=== PATIENT | female | born 1970 | race Caucasian/White ===

== ENCOUNTER → 2017-10-30 07:18 | Outpatient (CLI) | payer OTHER, SELFPAY ==
--- NOTE | 2017-10-30 | DI.US.S_ITS ---
PROCEDURE: US PELVIC COMPLETE INDICATIONS: PELVIC PAIN TECHNIQUE: Real-time scanning was performed of the pelvic organs, with image documentation. Additional endovaginal scanning was necessary due to incomplete visualization of the adnexal and endometrial structures by transabdominal scanning. COMPARISON: [facility], , PELVIC COMPLETE, 07/07/2010, 10:22. FINDINGS: Transabdominal scanning: Limited scanning through the kidneys shows no hydronephrosis. The kidneys measure 10.8 CM right and 10.4 CM left. No pathologic free abdominal or pelvic fluid. Endovaginal scanning: Uterus: Uterus is mildly enlarged in size at 5.0 x 6.4 x 10.1 cm. The endometrium measures 3.3 mm in combined thickness. Ovaries: Ovaries appear normal bilaterally measuring 15 x 19 x 27 mm right and 11 x 12 x 22 mm left. IMPRESSION: Mildly enlarged uterus with no measurable mass lesions. Normal ovaries. Source of right pelvic pain not seen. Dictated by: Ruslan Lora M.D. on 10/30/2017 at 8:40 Approved by: Ruslan Lora M.D. on 10/30/2017 at 8:43
== END ==
PROVIDERS: Family Provider Family Medicine; PCP Family Medicine; Visit Provider Family Medicine
DX: R10.2 Pelvic and perineal pain (principal); N85.2 Hypertrophy of uterus
CPT/HCPCS: 76830; 76856

== ENCOUNTER → 2019-03-04 13:44 | Outpatient (CLI) | payer OTHER, SELFPAY ==
--- NOTE | 2019-03-04 | DI.RAD.S_ITS ---
PROCEDURE: XR CHEST 2V INDICATIONS: CHEST PAIN TECHNIQUE: 2 views of the chest were acquired. COMPARISON: None. FINDINGS: Surgical changes and devices: None. Lungs and pleura: Lungs are clear. No pleural effusions or pneumothorax. Mediastinum: Mediastinal contours are normal. Heart size is normal. Bones and chest wall: No suspicious bony abnormalities. Soft tissues appear unremarkable. IMPRESSION: No acute cardiopulmonary disease. Dictated by: Hayden Vera M.D. on 03/04/2019 at 16:44 Approved by: Hayden Vera M.D. on 03/04/2019 at 16:44
--- NOTE | 2019-03-04 14:53 | PM.TREADMILL ---
Cardiac Stress Test Report Referral & Results Date Patient Seen: 03/04/19 Requesting provider: Sundeep Palencia Indication: Chest pain Rest ECG: Unremarkable Procedure Note: Today following both written and verbal informed consent, the patient was exercised according to a standard Mao protocol. The patient exercised for a total of 12 minutes achieving a maximum heart rate of 170. Patient's maximum systolic blood pressure was 150. This was an estimated 12.[address]-T segment changes Normal heart rate and blood pressure response to exercise Functional aerobic impairment way way way off the scale I estimate her functional aerobic capacity to be equal to that of an active 18-year-old Impression: No evidence of ischemia Amazing exercise capacity Please note: Actual ECG tracings can be found in the PACS system.
== END ==
PROVIDERS: Family Provider Family Medicine; PCP Family Medicine; Visit Provider Family Medicine
DX: R07.9 Chest pain, unspecified (principal)
CPT/HCPCS: 71046; 93016; 93017; 93018

== ENCOUNTER → 2019-12-04 08:01 | Outpatient (CLI) | payer OTHER, SELFPAY ==
--- NOTE | 2019-12-04 08:58 | DI.CT.S_ITS ---
PROCEDURE: CT ABDOMEN PELVIS W CON INDICATIONS: ABDOMINAL PAIN,PELVIC PAIN TECHNIQUE: After the administration of oral and intravenous contrast, 5 mm thick sections acquired from the diaphragms to the symphysis. 5 mm thick coronal and sagittal reformats were performed. For radiation dose reduction, the following was used: automated exposure control, adjustment of mA and/or kV according to patient size. COMPARISON: None. FINDINGS: Image quality: Excellent. ABDOMEN: Lung bases: Lung bases are clear. Heart size is normal. Hepatic steatosis. Gallbladder negative . Biliary system is non-dilated. Pancreas enhances normally. Spleen is normal in size and enhancement. No adrenal nodules. Kidneys are normal in size and enhancement, without hydronephrosis. Peritoneum and bowel: Stomach, small bowel, and colon loops are normal in caliber and wall thickness. No free fluid or air. Normal appendix. Large amount of stool is present. Nodes and vessels: No retroperitoneal or mesenteric adenopathy. Aorta and inferior vena cava are normal in caliber. Miscellaneous: No ventral hernias. PELVIS: Genitourinary: Bladder wall thickness is normal. Tiny fat containing right inguinal hernia. Bones: No suspicious bony lesions. No vertebral body compression fractures. IMPRESSION: No acute abnormality as detailed above Normal appendix Large amount of stool raising possibility of constipation/fecal retention. Dictated by: Zeke High M.D. on 12/04/2019 at 10:15 Approved by: Zeke High M.D. on 12/04/2019 at 10:19
== END ==
PROVIDERS: Family Provider Family Medicine; PCP Family Medicine; Referring Provider Family Medicine; Visit Provider Family Medicine
DX: R10.9 Unspecified abdominal pain (principal); R10.2 Pelvic and perineal pain
CPT/HCPCS: 74177; Q9967

== ENCOUNTER → 2019-12-16 10:45 | Outpatient (CLI) | payer OTHER, SELFPAY ==
--- NOTE | 2019-12-16 | DI.US.S_ITS ---
PROCEDURE: US PELVIC COMPLETE INDICATIONS: DYSMENORRHEA, NOT SPECIFIED TECHNIQUE: Real-time scanning was performed of the pelvic organs, with image documentation. Additional endovaginal scanning was necessary due to incomplete visualization of the adnexal and endometrial structures by transabdominal scanning. COMPARISON: [facility], CT, CT ABDOMEN PELVIS W CON, 12/04/2019, 8:54. [facility], US, US PELVIC COMPLETE, 10/30/2017, 7:34. FINDINGS: Transabdominal scanning: Limited scanning through the kidneys shows no hydronephrosis. No pathologic free abdominal or pelvic fluid. Endovaginal scanning: Uterus: Uterus is normal in size at 11.6 x 5 x 5.7 cm. The endometrium measures 10 mm in combined thickness. Ovaries: The right ovary measures 4.6 x 2.8 x 2.7 cm and demonstrates a cyst that measures up to 2.9 cm, which is considered to be within physiologic limits. The left ovary measures 1.9 x 1.2 x 1.7 cm. The ovaries have a normal sonographic appearance. No adnexal masses are seen. IMPRESSION: No significant abnormality is seen to explain the patient's presenting symptoms. Dictated by: Bairon Amos M.D. on 12/16/2019 at 12:29 Approved by: Bairon Amos M.D. on 12/16/2019 at 12:31
== END ==
PROVIDERS: Family Provider Family Medicine; PCP Family Medicine; Referring Provider Family Medicine; Visit Provider Family Medicine
DX: N94.6 Dysmenorrhea, unspecified (principal)
CPT/HCPCS: 76830; 76856

== ENCOUNTER → 2020-08-16 16:24 | Outpatient (CLI) | payer OTHER, SELFPAY ==
--- NOTE | 2020-08-16 16:26 | DI.MG.S_ITS ---
BILATERAL DIGITAL SCREENING MAMMOGRAM 3D/2D WITH CAD: 08/16/2020 CLINICAL: Routine screening. Comparison is made to exams dated: 05/30/2017 mammogram and 05/20/2013 mammogram - [facility]. There are scattered fibroglandular elements in both breasts. Current study was also evaluated with a Computer Aided Detection (CAD) system. No significant masses, calcifications, or other findings are seen in either breast. There has been no significant interval change. IMPRESSION: NEGATIVE There is no mammographic evidence of malignancy. A 1 year screening mammogram is recommended. This exam was interpreted at Station ID: [id number]. NOTE: For mammograms, a report in lay terms will be sent to the patient. Approximately 15% of breast malignancies will not be visualized mammographically. In the management of a palpable breast mass, a negative mammogram must not discourage biopsy of a clinically suspicious lesion. Electronically Signed By: Javier breen/alea:08/16/2020 17:00:24 letter sent: Normal Exam ACR BI-RADS Category 1: Negative [id number]
== END ==
PROVIDERS: Family Provider Family Medicine; PCP Family Medicine; Referring Provider Family Medicine; Visit Provider Family Medicine
DX: Z12.31 Encounter for screening mammogram for malignant neoplasm of breast (principal)
CPT/HCPCS: 77063; 77067

== ENCOUNTER → 2021-01-19 11:10 | Outpatient (CLI) | payer OTHER, SELFPAY ==
[2021-01-19 14:22] LABS: COVID19 -Nasal RAPID Negative (Negative)
== END ==
PROVIDERS: Family Provider Family Medicine; PCP Family Medicine; Visit Provider Nurse Practitioner Family
DX: Z20.822 Contact with and (suspected) exposure to COVID-19 (principal)
CPT/HCPCS: 87635

== ENCOUNTER 2021-01-21 14:17 | Day surgery (SDC) | payer OTHER, SELFPAY ==
[2021-01-21] VITALS (7 sets, daily range): BP systolic 100–108; BP diastolic 57–69; PULSE 64–75; RESP 12–14; TEMP 36.2–36.3; O2SAT 97–100; BMI 25.0
--- NOTE | 2021-01-21 11:46 | P.HP_ITS ---
History of Present Illness History of Present Illness Date Patient Seen: 01/21/21 Chief complaint: [facility] [place] Narrative: 50 Years Old Female seen today for consideration of a screening colonoscopy. There have been no recent lower GI symptoms suggesting disease such as change in bowel habits, bleeding, abdominal pain or anemia. Adopted. Overall health issues have been stable, including no major cardiac events for at least 6 weeks. Past Medical History: Toxic goiter Endometriosis Pelvic pain, acute Blood in stool Abdominal pain MENSES IRREGULAR Chest pain Hematuria Dermal mole with change Adult situational reaction abscess, genital labia PLANTAR WART HYPOTHYROIDISM INCONTINENCE, STRESS, FEMALE ECZEMA Skin tags; irritated/inflammed Past Surgical History: Laparoscopic ablation Family History: Adopted Social History: Marital Status: Children: 2 Occupation: Realtor Household Members: HugoMelanieOsnny Chichi Education: College -[employer] Drinks 1-2 glasses of wine daily. Meds Home Medications and Allergies Home Medications Medication Instructions Recorded Confirmed Type levothyroxine 175 mcg tablet mcg 01/21/21 History (Synthroid) Allergies Allergy/AdvReac Type Severity Reaction Status Date / Time No Known Drug Allergies Allergy Verified 01/21/21 14:10 Review of Systems Review of Systems Narrative: All remaining ROS were reviewed and negative except as addressed. Exam Narrative Exam Narrative: GENERAL: Alert and oriented, appearing stated age and in no acute distress. HEENT: Head normocephalic/atraumatic. LUNGS: Clear to ausculation bilaterally, no wheezes, rhonchi or rales. CV: Normal S1 and S2 with regular rate and rhythm, no audible murmurs, rubs or gallops. ABDOMEN: Soft, non-tender, non-distended, no organomegaly. Positive bowel sounds. EXTREMITIES: No clubbing, cyanosis, or edema. NEURO: Cranial nerves II through XII grossly intact, no focal deficits. PSYCH: Alert and oriented x 3. SKIN: No concerning lesions. Assessment & Plan Assessment & Plan narrative: 1. Screening for colon cancer Plan for colonoscopy. The nature and character of the procedure as well as anticipated results were discussed. The possibility of not completing the procedure was also discussed. Possible complications including aspiration pneumonia, bleeding, perforation and reaction to medications either for sedation or preparation and missed lesions were discussed. Questions were answered and proceeding to the colonoscopy was elected. Informed consent signed. I sincerely appreciate the referral allowing me to participate in this patient's care. Please contact me with any questions or concerns. Time Spent With Patient Critical Care time: I spent a total of [] minutes of critical care time on this patient's care today; this time is exclusive of procedural time.
--- NOTE | 2021-01-21 11:47 | PM.OP.COLON ---
Operative Date/Time/Diagnoses Date of procedure: 01/21/21 Procedure Notes SCOAP/Timeout: 3:40 p.m. Procedure in detail: ENDOSCOPIST: Devi Alvarez MD Sedation RN: Monika Crespo RN Sedation start time: 3:41 p.m. Sedation end time: 3:55 p.m. PROCEDURE: Colonoscopy INDICATIONS: 1. Screening for colon cancer MEDICATION: Levsin 0.125 mg sublingual, incremental doses of Versed and fentanyl until appropriate level sedation achieved. ASA CLASS: 2 CECAL WITHDRAWAL TIME: 6 minutes COMPLICATIONS: None. EXTENT OF PROCEDURE: Cecum. QUALITY OF PREP: Good with portions of liquid stool. PROCEDURE: Prior to insertion of the colonoscope, a digital rectal examination was accomplished with circumferential palpation of the distal rectal mucosa without significant findings being noted. The high-definition colonoscope was passed into the rectum in the usual fashion and advanced over to the cecum without difficulty. The ileocecal valve, appendiceal stoma, and medial wall all could be inspected and no abnormalities were seen. ASCENDING COLON: As the colonoscope was withdrawn, care was taken to expose and inspect the haustral folds and no abnormalities were seen. HEPATIC FLEXURE: Normal, no polyps, diverticula or other abnormalities. TRANSVERSE COLON: Normal, no polyps, diverticula or other abnormalities. DESCENDING COLON: Normal, no polyps, diverticula or other abnormalities. SIGMOID COLON: Normal, no polyps, diverticula or other abnormalities. RECTUM: Normal. J maneuver was produced. There was no significant perianal disease. The J maneuver was broken. The remainder of the rectum was inspected and there was no external hemorrhoid disease. The scope was withdrawn. IMPRESSION: 1. Normal colonoscopy PLAN: 1. Repeat colonoscopy in 10 years. The possibility of a missed lesion including a malignancy has been discussed with the patient previously. Potential alarm symptoms have been discussed and should be reported immediately.
--- NOTE | 2021-01-21 14:31 | SUR.PREOP ---
Hycosamine administered as per MD order at 1431 with small sip water. Scanner not working for [facility]
[2021-01-21] MEDS: LACTATED RINGERS 1,000 ML 200 ML IV (14:45)
[2021-01-21] MEDS: fentaNYL 250 MCG/5 ML INJ IV (15:57)
[2021-01-21] MEDS: MIDAZOLAM 5 MG/5 ML VIAL IV (15:58)
== END 2021-01-21 16:38 | disposition home or self-care (01) ==
LOC: ENDO 14:19
PROVIDERS: Family Provider Family Medicine; PCP Family Medicine; Referring Provider Student in an Organized Health Care Education/Training Program; Visit Provider Student in an Organized Health Care Education/Training Program
PROC: 0DJD8ZZ Inspection of Lower Intestinal Tract, Via Natural or Artificial Opening Endoscopic (ICD-10-PCS; CPT 45378; principal; 2021-01-21 15:15)
DX: Z12.11 Encounter for screening for malignant neoplasm of colon (principal)
CPT/HCPCS: 45378; 81025; J2250; J3010

== ENCOUNTER → 2022-03-14 13:22 | Outpatient (CLI) | payer OTHER, SELFPAY ==
--- NOTE | 2022-03-14 | DI.RAD.S_ITS ---
PROCEDURE: XR LUMBAR SPINE 2-3V INDICATIONS: Low back pain, unspecified TECHNIQUE: 3 views of the lumbar spine were acquired. COMPARISON: None. FINDINGS: Bones: 5 [id number] vertebrae are present. There is mild levoscoliosis centered at L1-2 level. Loss of disc height, degenerative endplate changes and bilateral facet arthrosis throughout lumbar spine is seen. No vertebral body compression fractures. No suspicious bony lesions. Soft tissues: Overlying bowel gas pattern is normal. No suspicious soft tissue calcifications. IMPRESSION: Mild degenerative disc disease throughout lumbar spine with mild scoliosis as above. No acute compression fracture or significant spondylolisthesis. Dictated by: Augustine Box M.D. on 03/14/2022 at 15:05 Approved by: Augustine Box M.D. on 03/14/2022 at 15:12
== END ==
PROVIDERS: Family Provider Family Medicine; PCP Family Medicine; Referring Provider Family Medicine; Visit Provider Family Medicine
DX: M51.36 Other intervertebral disc degeneration, lumbar region (principal); M41.9 Scoliosis, unspecified; M54.50 Low back pain, unspecified
CPT/HCPCS: 72100

== ENCOUNTER → 2022-09-11 06:51 | Outpatient (CLI) | payer OTHER, SELFPAY ==
--- NOTE | 2022-09-11 | DI.US.S_ITS ---
PROCEDURE: US PELVIC COMPLETE INDICATIONS: CRAMPING TECHNIQUE: Real-time scanning was performed of the pelvic organs, with image documentation. Additional endovaginal scanning was necessary due to incomplete visualization of the adnexal and endometrial structures by transabdominal scanning. COMPARISON: [facility], , US PELVIC COMPLETE, 12/16/2019, 11:16. FINDINGS: Uterus: Endometrium measures 2-3 mm, within normal limits. Overall uterus measures 8.7 by 4 x 5.1 cm. Homogeneous echotexture. Ovaries: Nonenlarged ovaries measuring 1-2 cc bilaterally. No pathologic free fluid. IMPRESSION: No acute sonographic abnormality identified. Dictated by: Jorgito Ballard M.D. on 09/11/2022 at 9:03 Approved by: Jorgito Ballard M.D. on 09/11/2022 at 9:04
== END ==
PROVIDERS: Family Provider Family Medicine; PCP Family Medicine; Referring Provider Internal Medicine; Visit Provider Internal Medicine
DX: R10.2 Pelvic and perineal pain (principal)
CPT/HCPCS: 76830; 76856

== ENCOUNTER → 2023-01-01 14:31 | Outpatient (CLI) | payer OTHER, SELFPAY ==
--- NOTE | 2023-01-01 | DI.RAD.S_ITS ---
PROCEDURE: XR KNEE RT 3V INDICATIONS: Pain in right knee TECHNIQUE: 3 views of the knee were acquired. COMPARISON: None. FINDINGS: Bones: No fractures or dislocations. No suspicious bony lesions. No significant degenerative changes. Soft tissues: No joint effusion. No suspicious soft tissue calcifications. IMPRESSION: No definite radiographic abnormality. If pain persists with conservative management consider cross-sectional imaging with MRI or CT. Dictated by: Cortes Viveros M.D. on 01/01/2023 at 15:18 Approved by: Cortes Viveros M.D. on 01/01/2023 at 15:19
== END ==
PROVIDERS: Family Provider Family Medicine; PCP Family Medicine; Referring Provider Internal Medicine; Visit Provider Internal Medicine
DX: M25.561 Pain in right knee (principal)
CPT/HCPCS: 73562

== ENCOUNTER → 2023-06-27 13:00 | Outpatient (CLI) | payer OTHER, SELFPAY ==
--- NOTE | 2023-06-27 13:01 | DI.MG.S_ITS ---
BILATERAL DIGITAL SCREENING MAMMOGRAM 3D/2D WITH CAD: 06/27/2023 CLINICAL: Routine screening. Comparison is made to exams dated: 08/16/2020 mammogram, 05/30/2017 mammogram, and 05/20/2013 mammogram - [facility]. There are scattered areas of fibroglandular density in both breasts (category b / 25%-50% glandular tissue). Current study was also evaluated with a Computer Aided Detection (CAD) system. No significant masses, calcifications, or other findings are seen in either breast. There has been no significant interval change. IMPRESSION: NEGATIVE There is no mammographic evidence of malignancy. A 1 year screening mammogram is recommended. Based on the Tyrer Cuzick model (a risk assessment model) the patient's lifetime risk is 9.2% and her 10 year risk is 2.5%. According to the ACR, ACS, and NCCN guidelines, an annual breast MRI exam along with mammogram is recommended if the patient's lifetime risk is 20% or greater. This exam was interpreted at Station ID: [id number]. NOTE: For mammograms, a report in lay terms will be sent to the patient. Approximately 15% of breast malignancies will not be visualized mammographically. In the management of a palpable breast mass, a negative mammogram must not discourage biopsy of a clinically suspicious lesion. Electronically Signed By: Lou domingo/alea:06/27/2023 16:26:19 letter sent: Normal Exam ACR BI-RADS Category 1: Negative [id number]
== END ==
LOC: MAMMO 13:00
PROVIDERS: Family Provider Family Medicine; PCP Family Medicine; Referring Provider Family Medicine; Visit Provider Family Medicine
DX: Z12.31 Encounter for screening mammogram for malignant neoplasm of breast (principal); R92.323 Mammographic fibroglandular density, bilateral breasts
CPT/HCPCS: 77063; 77067

== ENCOUNTER → 2024-03-04 11:08 | Outpatient (CLI) | payer OTHER, SELFPAY ==
--- NOTE | 2024-03-04 11:09 | DI.CT.S_ITS ---
PROCEDURE: CT SINUS SCREEN WO CON INDICATIONS: SINUS HEADACHE TECHNIQUE: Noncontrast 3.0 mm axial images acquired from the frontal sinuses to the mid-sella, with coronal and sagittal reformats. For radiation dose reduction, the following was used: automated exposure control, adjustment of mA and/or kV according to patient size. COMPARISON: None. FINDINGS: Image quality: Excellent. Maxillary Sinuses: No bony remodeling or destruction. Mild bilateral maxillary sinus mucosal thickening. Ethmoid Air Cells: No bony remodeling or destruction. Sinuses are clear. Sphenoid Sinuses: No bony remodeling or destruction. Sinuses are clear. Frontal Sinuses: No bony remodeling or destruction. Sinuses are clear. Ostiomeatal Complexes: Ostiomeatal complexes are patent. No Thi cells. Miscellaneous: Visualized intra-orbital contents are normal. No ciarra bullosa or paradoxical turbinate curvature. Mild rightward nasal septal deviation. IMPRESSION: 1. Mild bilateral maxillary sinus mucosal thickening. 2. Mild rightward nasal septal deviation. Dictated by: Frankie Multani M.D. on 03/04/2024 at 12:51 Approved by: Frankie Multani M.D. on 03/04/2024 at 13:01
== END ==
LOC: CT 11:09
PROVIDERS: Family Provider Family Medicine; PCP Family Medicine; Referring Provider Family Medicine; Visit Provider Family Medicine
DX: J32.0 Chronic maxillary sinusitis (principal); R51.9 Headache, unspecified; J34.2 Deviated nasal septum
CPT/HCPCS: 70486

== ENCOUNTER → 2024-04-28 13:57 | Outpatient (CLI) | payer OTHER, SELFPAY ==
--- NOTE | 2024-04-28 13:59 | DI.US.S_ITS ---
PROCEDURE: US PELVIC COMPLETE INDICATIONS: POSTMENOPAUSAL BLEEDING TECHNIQUE: Real-time scanning was performed of the pelvic organs, with image documentation. Additional endovaginal scanning was necessary due to incomplete visualization of the adnexal and endometrial structures by transabdominal scanning. COMPARISON: [facility], , US PELVIC COMPLETE, 09/11/2022, 6:57. FINDINGS: Uterus: Uterus is anteverted and normal in size at 9.9 x 3.6 x 4.5 cm. The myometrium is homogeneous. The endometrium measures 3.4 mm combined thickness. Ovaries: Nonvisualized Other: No pathologic free abdominal or pelvic fluid. IMPRESSION: Nonvisualized ovaries. Otherwise unremarkable. Approved by: Chris Pichardo M.D. on 04/28/2024 at 19:10
== END ==
PROVIDERS: Family Provider Family Medicine; PCP Family Medicine; Referring Provider Family Medicine; Visit Provider Family Medicine
DX: N95.0 Postmenopausal bleeding (principal)
CPT/HCPCS: 76830; 76856

== ENCOUNTER → 2024-06-12 14:35 | Outpatient (CLI) | payer OTHER, SELFPAY ==
--- NOTE | 2024-06-12 | DI.RAD.S_ITS ---
PROCEDURE: XR LUMBAR SPINE MIN 4V INDICATIONS: chronic left sided low back pain with bilat sciatica TECHNIQUE: 5 views of the lumbar spine were acquired, including bilateral oblique views. COMPARISON: [facility], , XR LUMBAR SPINE 2-3V, 03/14/2022, 13:38. FINDINGS: Lumbar spine curvature and alignment: Mild levoscoliosis appreciated. Bones: There are no osseous abnormalities. Disc spaces: Moderate L2-3, mild L3-4 degenerative disc disease noted. There is mild degenerative facet disease L4-5 L5-S1. Soft tissues: No soft tissue swelling, calcification or mass. IMPRESSION: Degeneration Dictated by: Adolfo Benavides M.D. on 06/13/2024 at 12:07 Approved by: Adolfo Benavides M.D. on 06/13/2024 at 12:08
== END ==
PROVIDERS: Family Provider Family Medicine; PCP Family Medicine; Referring Provider Family Medicine; Visit Provider Family Medicine
DX: M51.16 Intervertebral disc disorders with radiculopathy, lumbar region (principal); M47.26 Other spondylosis with radiculopathy, lumbar region; M47.27 Other spondylosis with radiculopathy, lumbosacral region; G89.29 Other chronic pain
CPT/HCPCS: 72110

== ENCOUNTER → 2024-07-24 10:41 | Outpatient (CLI) | payer OTHER, SELFPAY ==
--- NOTE | 2024-07-24 10:43 | DI.MRI.S_ITS ---
PROCEDURE: MR LUMBAR SPINE WO CON INDICATIONS: BACK PAIN WITH RADICULOPATHY TECHNIQUE: Noncontrast sagittal T1 spin echo and T2 fast echo, sagittal STIR, and T2 fast spin echo through the lumbar spine. In cases with scoliosis, additional coronal T2 fast spin echo may be performed. COMPARISON: [facility], CR, XR LUMBAR SPINE 2-3V, 03/14/2022, 13:38. [facility], CT, CT ABDOMEN PELVIS W CON, 12/04/2019, 8:54. [facility], CR, XR LUMBAR SPINE MIN 4V, 06/12/2024, 14:41. FINDINGS: Image quality: Excellent. Alignment and Curvature: Mild levoconvex scoliotic curvature is noted. No focal AP alignment abnormality is seen. Bone Marrow: Marrow is of normal overall signal. No acute vertebral body compression fractures. Spinal Cord: Conus medullaris terminates at the L1 level. Visualized cord demonstrates normal signal and size. Paraspinous Soft Tissues: No paravertebral masses. T12-L1: Normal appearance. L1-L2: Normal appearance. L2-L3: Mild loss of disc height is seen. Loss of disc signal is seen. Mild generalized disc bulge is seen. There is a superimposed central disc protrusion. Mild to moderate facet hypertrophy is seen. There is moderate left-sided and minimal to mild right-sided neural foraminal narrowing. Moderate central canal narrowing is seen. L3-L4: The disc height is well-preserved. Loss of disc signal is seen at this level. Moderate generalized disc bulge is seen. There is a superimposed central disc protrusion. Mild to moderate facet hypertrophy is seen. There is gvvp-up-biwenbrd right-sided and at least moderate left-sided neural foraminal narrowing. Mild central canal narrowing is seen. L4-L5: The disc height and disk signal are relatively well-preserved. Mild generalized disc bulge is seen. There is a mild central disc protrusion. Mild to moderate facet hypertrophy is seen. There is at least moderate right-sided and moderate to severe left-sided neural foraminal narrowing. There is a mild degree of compression seen upon the exiting left L4 nerve root. Minimal central canal narrowing is seen. L5-S1: The disc height and disk signal are relatively well-preserved. Mild generalized disc bulge is seen. Moderate facet joint hypertrophy is seen. Mild bilateral neural foraminal narrowing is seen. No central canal narrowing is seen. IMPRESSION: Multiple levels of lumbar spine degenerative change can be seen, which are overall worst at the L2-L3 level. Mild levoconvex scoliotic curvature is noted. Dictated by: Bairon Amos M.D. on 07/24/2024 at 17:41 Approved by: Bairon Amos M.D. on 07/24/2024 at 17:44
== END ==
PROVIDERS: Family Provider Family Medicine; PCP Family Medicine; Referring Provider Family Medicine; Visit Provider Family Medicine
DX: M54.41 Lumbago with sciatica, right side (principal); M54.42 Lumbago with sciatica, left side; M47.816 Spondylosis without myelopathy or radiculopathy, lumbar region; M47.817 Spondylosis without myelopathy or radiculopathy, lumbosacral region; M41.9 Scoliosis, unspecified; G89.29 Other chronic pain
CPT/HCPCS: 72148

== ENCOUNTER → 2024-08-21 14:15 | Outpatient (CLI) | payer OTHER, SELFPAY ==
--- NOTE | 2024-08-21 14:15 | DI.RAD.S_ITS ---
PROCEDURE: XR DEXA AXIAL SKELETON INDICATIONS: POSTMENOPAUSAL COMPARISON: None. FINDINGS: Lumbar Spine: Bone mineral density 0.932 g/cm2, T score -1.0. Left Femoral Neck: Bone mineral density 0.779 g/cm2, T score -0.6. Left Hip: Bone mineral density 0.972 g/cm2, T score 0.1, Fracture Risk Calculation (when applicable): 10-year fracture risk of a major osteoporotic fracture 5.4 percent and of a hip fracture 0.2 percent. (T score greater or equal to -1.0 to: NORMAL) (T score from -1.1 to -2.4: OSTEOPENIA) (T score less than or equal to -2.5: OSTEOPOROSIS) IMPRESSION: Normal bone mineral density. Follow-up guidelines as follows: Osteoporosis: Consider a repeat DEXA and Vertebral Fracture Assessment (VFA) exam in 2 years or sooner if medically necessary, to reassess this patient's status. Osteopenia: Consider a repeat DEXA in 2-3 years to reassess this patient's status, or if there is a new clinical indication. Normal: Consider a repeat DEXA in 5 years or sooner, or if there is a new clinical indication. All treatment decisions require clinical judgment and consideration of individual patient factors, including patient preferences, comorbidities, previous drug use, risk factors not captured in the FRAX model (e.g., frailty, falls, vitamin D deficiency, increased bone turnover, interval significant decline in bone density ) and possible under- or over-estimation of fracture risk by FRAX. In addition, the NOF Guide recommends that FDA-approved medical therapies be considered in postmenopausal women and men age >= 50 years with a: * Hip or vertebral (clinical or morphometric) fracture * T-score of <=-2.5 at the spine or hip * Ten-year fracture probability by FRAX of >= 3% for hip fracture or >=20% for major osteoporotic fracture. Dictated by: Mindy Rodriguez M.D. on 08/21/2024 at 16:29 Approved by: Mindy Rodriguez M.D. on 08/21/2024 at 16:30
== END ==
PROVIDERS: Family Provider Family Medicine; PCP Family Medicine; Referring Provider Family Medicine; Visit Provider Family Medicine
DX: Z78.0 Asymptomatic menopausal state (principal)
CPT/HCPCS: 77080

== ENCOUNTER → 2024-09-01 10:36 | Outpatient (CLI) | payer OTHER, SELFPAY ==
--- NOTE | 2024-09-01 10:38 | DI.RAD.S_ITS ---
PROCEDURE: XR FOOT RT MIN 3V INDICATIONS: foot pain, plantar between 2-3 toes TECHNIQUE: 3 views of the foot were acquired. COMPARISON: None. FINDINGS: Bones: Os trigonum, mild pes planus and mild hammertoe deformities 2nd through 5th digits noted. Joints: Minimal degeneration in the 2nd through 5th interphalangeal joints Soft tissues: No soft tissue abnormality. IMPRESSION: Chronic findings as described Dictated by: Adolfo Benavides M.D. on 09/02/2024 at 11:46 Approved by: Adolfo Benavides M.D. on 09/02/2024 at 11:47
== END ==
LOC: RAD 10:37
PROVIDERS: Family Provider Family Medicine; PCP Family Medicine; Referring Provider Nurse Practitioner Family; Visit Provider Nurse Practitioner Family
DX: M21.41 Flat foot [pes planus] (acquired), right foot (principal); M79.671 Pain in right foot; M20.41 Other hammer toe(s) (acquired), right foot; M21.6X1 Other acquired deformities of right foot
CPT/HCPCS: 73630

== ENCOUNTER 2024-09-02 14:18 | Emergency (ER) | payer OTHER, SELFPAY ==
[2024-09-02 14:21] VITALS: BP 152/76; PULSE 87; RESP 18; TEMP 36.9; O2SAT 100; BMI 26.3
--- NOTE | 2024-09-02 15:20 | ED.EXTPRO ---
HPI - Extremity Problem <Billy Berrios PA-C - Last Filed: 09/02/24 15:49> General Chief complaint: Extremity Problem,Nontraumatic Stated complaint: Right foot pain Time Seen by Provider: 09/02/24 14:48 Source: patient Mode of arrival: Wheelchair History of Present Illness HPI Narrative: 53-year-old female presents to the ED with 4 days of right-sided foot pain. Patient was seen in the walk-in clinic yesterday, x-ray was obtained. X-ray was without acute findings. Patient diagnosed with possible Edward's neuroma, discharged home with prednisone and ibuprofen. Patient presents to the ED today since her pain has worsened. Patient describes the pain as a burning pain. No trauma. Patient states that the pain came on after she walked her dog 4 days ago. No numbness, tingling, weakness. No fever, chills. Related Data Home Medications ?Medication ?Instructions ?Recorded ?Confirmed levothyroxine 175 mcg tablet mcg 01/21/21 09/01/24 (Synthroid) esterified estrogens 0.625 mg mg PO DAILY 05/02/24 09/01/24 tablet (Menest) progesterone micronized 100 mg mg PO 05/02/24 09/01/24 capsule Previous Rx's ?Medication ?Instructions ?Recorded prednisone 20 mg tablet 40 mg (2 x 20 mg) PO DAILY #6 tabs 09/01/24 gabapentin 300 mg capsule 300 mg PO TID PRN foot pain #30 09/02/24 caps Allergies Allergy/AdvReac Type Severity Reaction Status Date / Time No Known Drug Allergies Allergy Verified 09/02/24 14:21 Review of Systems <Billy Berrios PA-C - Last Filed: 09/02/24 15:49> Constitutional Constitutional: Denies chills, Denies fatigue, Denies fever(s), Denies frequent falls, Denies lethargy and Denies weakness Eyes Eyes: Denies change in vision, Denies eye discharge, Denies irritation and Denies loss of vision ENT Ears, Nose, Mouth, and Throat: Denies change in voice, Denies dizziness, Denies neck pain, Denies sore throat and Denies throat swelling Cardiovascular Cardiovascular: Denies chest pain, Denies irregular heart rhythm, Denies lightheadedness, Denies palpitations, Denies dyspnea, Denies dyspnea on exertion and Denies orthopnea Respiratory Respiratory: Denies cough, Denies dyspnea, Denies dyspnea on exertion and Denies wheezing Gastrointestinal Gastrointestinal: Denies abdominal pain, Denies change in bowel habits, Denies diarrhea, Denies nausea and Denies vomiting Musculoskeletal Musculoskeletal: Denies muscle weakness, Denies neck pain, Denies numbness and Denies tingling Comments: Right-sided foot pain, swelling Integumentary/Breasts Skin/Breast: Denies pruritus, Denies erythema, Denies rash and Denies wounds Neurologic Neurologic: Denies behavioral changes, Denies confusion, Denies dizziness, Denies frequent falls, Denies loss of vision, Denies numbness, Denies tingling and Denies weakness Psychiatric Psychiatric: Denies anxiety, Denies behavioral changes, Denies confusion, Denies depression, Denies homicidal ideation and Denies suicidal ideation Endocrine Endocrine: Denies fatigue, Denies flushing and Denies palpitations Hematologic/Lymphatic Hematologic/Lymphatic: Denies easy bruising Allergic/Immunologic Allergic/Immunologic: Denies urticaria, Denies throat swelling and Denies wheezing Patient History <Billy Berrios PA-C - Last Filed: 09/02/24 15:49> Medical History Eczema Graves disease (~1995) Postmenopausal bleeding Surgical History Anesthesia Endometriosis (~1997) Social History Smoking Status: Never smoker alcohol intake: current Smoking Status: Never smoker alcohol intake frequency: a few times a week Alcohol type: wine Exam <Billy Berrios PA-C - Last Filed: 09/02/24 15:49> Narrative Exam Narrative: Const General:?cooperative, healthy appearing and comfortable [facility] Head:?normal to inspection Ears:?hearing grossly normal bilaterally Nose:?external nose normal Face and sinus:?normal facial exam and sinuses nontender Mouth:?oral mucosae normal Throat:?posterior oropharynx normal Eyes General:?appearance normal, both eyes and all related structures Neck Neck:?normal visual inspection and no lymphadenopathy noted Resp Effort & Inspection:?normal respiratory effort Auscultation:?clear to auscultation bilaterally Cardio Rate:?regular rate Rhythm:?regular rhythm\ Musculoskeletal There is swelling, tenderness to palpation of the right foot, in the distal plantar region between the 2nd and 3rd metatarsal. Skin is normal and intact. Neurovascularly intact. Neuro General:?patient alert, patient awake and patient oriented x3 Initial Vital Signs Initial Vital Signs: Vital Signs Temperature 98.4 F 09/02/24 14:21 Pulse Rate 87 09/02/24 14:21 Respiratory Rate 18 09/02/24 14:21 Blood Pressure 152/76 H 09/02/24 14:21 Pulse Oximetry 100 09/02/24 14:21 Oxygen Delivery Method Room Air 09/02/24 14:21 <Johan Greer MD - Last Filed: 09/09/24 07:10> Initial Vital Signs Initial Vital Signs: Vital Signs Temperature 98.4 F 09/02/24 14:21 Pulse Rate 87 09/02/24 14:21 Respiratory Rate 18 09/02/24 14:21 Blood Pressure 152/76 H 09/02/24 14:21 Pulse Oximetry 100 09/02/24 14:21 Oxygen Delivery Method Room Air 09/02/24 14:21 Course <Billy Berrios PA-C - Last Filed: 09/02/24 15:49> Vital Signs Vital signs: Vital Signs - 8 hr 09/02/24 14:21 Temperature 98.4 F Pulse Rate 87 Respiratory Rate 18 Blood Pressure 152/76 H Pulse Oximetry 100 Oxygen Delivery Method Room Air <Johan Greer MD - Last Filed: 09/09/24 07:10> Vital Signs Vital signs: Vital Signs - 8 hr 09/02/24 14:21 Temperature 98.4 F Pulse Rate 87 Respiratory Rate 18 Blood Pressure 152/76 H Pulse Oximetry 100 Oxygen Delivery Method Room Air MDM - Extremity (Nontraumatic) <Billy Berrios PA-C - Last Filed: 09/02/24 15:49> MDM Narrative Medical decision making narrative: 53-year-old female presents to the ED with 4 days of right-sided foot pain. It is reassuring to note that the x-ray is without acute findings. Patient's symptoms could be due to a Edward's neuroma versus other. Recommend that patient take the prednisone and ibuprofen. Also prescribed gabapentin. Recommend follow-up with Podiatry and PCP as soon as possible. ED return precautions discussed with patient. Patient verbalized understanding. Medical records reviewed: Yes Discharge Plan Departure Patient Disposition: Home Clinical Impression: Foot pain, right Instructions: DI for Foot Pain Activity Restrictions/Additional Instructions: You were evaluated in the emergency department today for foot pain. The x-ray does not show any acute findings such as fractures or dislocations. It does show that you have a falling arch for which you might benefit from a supportive shoe. Please continue taking 800 mg of ibuprofen every 8 hours with food for pain. Please also take the prednisone as prescribed. You are being prescribed gabapentin for pain as well. Please follow-up with Podiatry and your PCP for further evaluation and treatment. Return to the ED if you have worsening symptoms, numbness, tingling, weakness. Prescriptions: New gabapentin 300 mg capsule 300 mg PO TID PRN (Reason: foot pain) Qty: 30 0RF No Action prednisone 20 mg tablet 40 mg PO DAILY Qty: 6 0RF Menest 0.625 mg tablet PO DAILY progesterone micronized 100 mg capsule PO levothyroxine [Synthroid] 175 mcg tablet Referrals: Sundeep Palencia MD [Primary Care Provider, Family Practice] Stand Alone Forms: Patient Portal/API ED Sign-out <Johan Greer MD - Last Filed: 09/09/24 07:10> Cosign ED Attending Cosadriaature Attestation: I was immediately available in the department for consultation. ?This documentation has been reviewed and I agree with assessment and plan. Supervised by Johan Greer MD
[2024-09-02 15:48] VITALS: BP 133/66; PULSE 80; RESP 18; O2SAT 99
== END 2024-09-02 15:52 | disposition home or self-care (01) ==
PROVIDERS: Emergency Provider Student in an Organized Health Care Education/Training Program; Family Provider Family Medicine; PCP Family Medicine
DX: M79.671 Pain in right foot (principal)
CPT/HCPCS: 99281

== ENCOUNTER → 2024-12-11 10:16 | Outpatient (CLI) | payer OTHER, SELFPAY ==
--- NOTE | 2024-12-11 10:18 | DI.RAD.S_ITS ---
PROCEDURE: XR HIP W PEL IF DONE RT 2V INDICATIONS: right hip djd TECHNIQUE: Two views of the hip were acquired. COMPARISON: None. FINDINGS: Bones: There are no osseous abnormalities. SI and hip joints: Normal in width and alignment without arthritic change. Mild L5-S1 degenerative disc and facet disease Soft tissues: Minor calcification of the left gluteal tendon insertion on the left greater trochanter appreciated IMPRESSION: Minor chronic findings as described Dictated by: Adolfo Benavides M.D. on 12/12/2024 at 6:15 Approved by: Adolfo Benavides M.D. on 12/12/2024 at 6:18
== END ==
PROVIDERS: PCP Family Medicine; Referring Provider Physical Medicine & Rehabilitation; Visit Provider Physical Medicine & Rehabilitation
DX: M48.061 Spinal stenosis, lumbar region without neurogenic claudication (principal); M16.11 Unilateral primary osteoarthritis, right hip; M41.9 Scoliosis, unspecified; M53.3 Sacrococcygeal disorders, not elsewhere classified; M47.817 Spondylosis without myelopathy or radiculopathy, lumbosacral region; M51.379 Other intervertebral disc degeneration, lumbosacral region without mention of lumbar back pain or lower extremity pain
CPT/HCPCS: 73502